=== PATIENT | male | born 1945 | race Caucasian/White ===

== ENCOUNTER 2020-11-07 14:32 | Outpatient (CLI) | payer MEDICARE, SELFPAY ==
--- NOTE | 2020-11-07 14:42 | XR_ITS ---
WS: [id number] HAND RIGHT TECHNIQUE: 3 views of the right hand CLINICAL INFORMATION: PAIN IN RIGHT HAND COMPARISON: None. FINDINGS: Normal metacarpals. Normal MCP joint. Metacarpal heads are normal in appearance. Mild degenerative na rrowing PIP and DIP joints. No evidence of acute fracture or dislocation. Radiocarpal joint: Mild narrowing Carpal bones: Normal. XR/XR hand RT min 3V* [id number] IMPRESSION: 1. No acute fractures. 2. Mild degenerative narrowing radiocarpal joint and IP joints. 3. Normal scaphoid and lunate.
--- NOTE | 2020-11-07 14:42 | XR_ITS ---
WS: [id number] HAND LEFT TECHNIQUE: 3 views of the left hand CLINICAL INFORMATION: PAIN IN LEFT HAND COMPARISON: None. FINDINGS: Normal metacarpals. Normal MCP joint. Metacarpal heads are normal in appearance. Mild narrowing PIP a nd DIP joints. No evidence of acute fracture or dislocation. Radiocarpal joint: Mild narrowing Carpal bones: Mild degenerative arthritis first CMC. XR/XR hand LT min 3V* [id number] IMPRESSION: Mild degenerative arthritis as described above. No acute fractures.
== END 2020-11-07 14:33 | disposition home or self-care (01) ==
PROVIDERS: Family Provider Family Medicine; Visit Provider Nurse Practitioner
DX: M79.641 Pain in right hand (principal); M79.642 Pain in left hand; M19.042 Primary osteoarthritis, left hand
CPT/HCPCS: 73130